=== PATIENT | female | born 1990 | race African-American/Black ===

== ENCOUNTER 2017-12-18 23:37 | Emergency (ER) | payer OTHER ==
[~2017-12-18] VITALS: Ht 167.6 cm; Wt 104.3 kg
--- NOTE | 2017-12-18 23:54 | NUR ---
Dr. Nguyen at bedside for MSE.
[2017-12-19] MEDS ORDERED: IBUPROFEN 800 MG TABLET PO ONE
[2017-12-19] MEDS ORDERED: LIDOCAINE HCL 2% 20 ML VIAL TP ONE
[2017-12-19] MEDS ORDERED: LET TOPICAL SOLUTION 8 ML UDC TOP ONE
[2017-12-19] MEDS ORDERED: SODIUM BICARBONATE 4.2 % (NEUT) 5 ML VIAL TP ONE
[2017-12-19] MEDS ORDERED: LET TOPICAL SOLUTION 8 ML UDC ONE (00:03)
[2017-12-19] MEDS ORDERED: LIDOCAINE HCL 2% 20 ML VIAL ONE (00:05)
[2017-12-19] MEDS ORDERED: NEOMY/BACITRA/POLYMYXIN B OINT UD PACKET TP ONE ×2 (00:05)
[2017-12-19] MEDS ORDERED: SODIUM BICARBONATE 4.2 % (NEUT) 5 ML VIAL ONE (00:05)
[2017-12-19] MEDS ORDERED: TDAP DIPH,PERTUSS,TET VAC/PF 0.5 ML DISP.SYRIN IM ONE ×2 (00:06)
[2017-12-19] MEDS ORDERED: IBUPROFEN 800 MG TABLET ONE (00:06)
--- NOTE | 2017-12-19 01:35 | NUR ---
Patient discharged to home in stable conditon. Written and verbal after care instructions given. Patient verbalizes understanding of instructions. Pt ambulated out of ER with steady gait, no acute signs of distress, VSS, all belongings taken.
[2017-12-19 01:37] VITALS: BP 139/44
[2017-12-20] MEDS ORDERED: CEPH-569 PO (23:37)
== END 2017-12-19 01:37 | disposition home or self-care (01) ==
LOC: ER 23:40
DX: S41.111A Laceration without foreign body of right upper arm, initial encounter (principal); F17.200 Nicotine dependence, unspecified, uncomplicated; Z79.899 Other long term (current) drug therapy; W25.XXXA Contact with sharp glass, initial encounter; Y93.89 Activity, other specified; Y92.89 Other specified places as the place of occurrence of the external cause; Y99.8 Other external cause status
CPT/HCPCS: 90715; A4217; A4663; J3490

== ENCOUNTER 2017-12-20 23:03 | Emergency (ER) | payer OTHER ==
[~2017-12-20] VITALS: Ht 167.6 cm; Wt 104.3 kg
[2017-12-20] MEDS ORDERED: CEPH-569 PO (23:37)
--- NOTE | 2017-12-20 23:48 | NUR ---
Dr. Nguyen at bedside for MSE.
[2017-12-21] MEDS ORDERED: NEOMY/BACITRA/POLYMYXIN B OINT UD PACKET TP ONE ×2 (00:10)
[2017-12-21 00:24] VITALS: BP 141/81
== END 2017-12-21 00:25 | disposition home or self-care (01) ==
LOC: ER 23:06
DX: S41.111D Laceration without foreign body of right upper arm, subsequent encounter (principal); Z48.01 Encounter for change or removal of surgical wound dressing; F17.200 Nicotine dependence, unspecified, uncomplicated; Z79.2 Long term (current) use of antibiotics; X58.XXXD Exposure to other specified factors, subsequent encounter
CPT/HCPCS: 99282; A4663